=== PATIENT | female | born 1995 | race Two or more races ===

== ENCOUNTER 2019-02-04 11:37 | Emergency (ER) | payer SELFPAY ==
[2019-02-04 12:10] VITALS: BP 113/68; PULSE 65; RESP 16; TEMP 97.9; O2SAT 100; BMI 21.2
--- NOTE | 2019-02-04 13:00 | ED PDOC ---
Lower Extremity Pain/Injury Time Seen by Provider: 02/04/19 12:10 Chief Complaint (Nursing): Lower Extremity Problem/Injury Chief Complaint (Provider): Knee Pain History Per: Patient History/Exam Limitations: no limitations Onset/Duration Of Symptoms: Days Additional Complaint(s): 24 year old female presents to ED with bilateral atraumatic knee pain, left greater than right, since yesterday. She has been taking Motrin for the pain and denies any numbness, tingling, trauma, fever, chills. PMD: none provided Past Medical History Reviewed: Historical Data, Nursing Documentation, Vital Signs Vital Signs: Last Vital Signs Temp 97.9 F 02/04/19 12:09 Pulse 65 02/04/19 12:09 Resp 16 02/04/19 12:09 BP 113/68 02/04/19 12:09 Pulse Ox 100 02/04/19 12:09 Primary Care Provider: FAMILY PROVIDER,NO - Medical History PMH: No Chronic Diseases - Surgical History Surgical History: No Surg Hx - Family History Family History: States: No Known Family Hx - Social History Current smoker - smoking cessation education provided: No Alcohol: None Drugs: Denies - Home Medications Home Medications: Ambulatory Orders Medication Instructions Recorded Naproxen [Naprosyn] 500 mg PO BID PRN #10 tab 02/04/19 - Allergies Allergies/Adverse Reactions: Allergies Allergy/AdvReac Type Severity Reaction Status Date / Time No Known Allergies Allergy Verified 02/04/19 12:09 Review of Systems ROS Statement: Except As Marked, All Systems Reviewed And Found Negative Constitutional: Negative for: Fever, Chills, Other (denies trauma) Musculoskeletal: Positive for: Other (knee pain, left greater than right) Neurological: Negative for: Numbness, Other (no tingling) Physical Exam - Reviewed Nursing Documentation Reviewed: Yes Vital Signs Reviewed: Yes - Physical Exam Appears: Positive for: No Acute Distress Pulses-Dorsalis Pedis (L): 2+ Pulses-Dorsalis Pedis (R): 2+ Extremity: Positive for: Normal ROM (with positive crepitus to both knees). Negative for: Tenderness, Calf Tenderness (none bilaterally), Deformity, Swelling, Other (no erythema, no warmth) - ECG O2 Sat by Pulse Oximetry: 100 (RA) Pulse Ox Interpretation: Normal Medical Decision Making Medical Decision Making: Time: 1244 Initial Impression: Initial Plan: --Xray (Knee) Scribe Attestation: Documented by Vitaliy Rothman, acting as a scribe for Juan Simon PA-C Provider Scribe Attestation: All medical record entries made by the Scribe were at my direction and personally dictated by me. I have reviewed the chart and agree that the record accurately reflects my personal performance of the history, physical exam, medical decision making, and the department course for this patient. I have also personally directed, reviewed, and agree with the discharge instructions and disposition. Disposition - Clinical Impression Clinical Impression: Bilateral knee pain - Patient ED Disposition Is Patient to be Admitted: No - Disposition Referrals: [facility] [Outside] [facility] [place] [Outside] Disposition: Routine/Home Disposition Time: 13:00 Condition: STABLE Prescriptions: Naproxen [Naprosyn] 500 mg PO BID PRN #10 tab PRN Reason: Pain Instructions: Knee Pain (DC) Forms: [employer] (Occitan) Print Language: ICELANDIC
--- NOTE | 2019-02-04 14:34 | RAD ---
Date of service: 02/04/2019 PROCEDURE: Bilateral Knee Radiographs. HISTORY: pain COMPARISON: None. TECHNIQUE: 4 views obtained. FINDINGS: BONES: Right Knee: Normal. No fracture. Left Knee: Normal. No fracture. JOINTS: Right Knee: Normal. No osteoarthritis. Left knee: Normal. No osteoarthritis. SOFT TISSUES: Right Knee: Normal. Left Knee: Normal. JOINT EFFUSION: Right Knee: None. Left Knee: None. OTHER FINDINGS: None. IMPRESSION: Normal radiographs of the knees.
== END 2019-02-04 13:15 | disposition home or self-care (01) ==
LOC: H.ER 11:37
DX: M25.561 Pain in right knee (principal); M25.562 Pain in left knee